=== PATIENT | female | born 1955 | race Caucasian/White ===

== ENCOUNTER 2023-04-22 09:19 | Emergency (ER) | payer MEDICARE, OTHER ==
[~2023-04-22] VITALS: Ht 167.6 cm; Wt 98.0 kg
[~2023-04-22 09:19] MED LIST: CALCIUM600 MG PO; DAILY MULTIPLE1 EACH PO; DICLOFENAC SODI75 MG PO; ESTRACE0.5 MG PO; FISH OIL500 MG PO; GABAPENTIN300 MG PO; MECLIZINE HCL25 MG PO; OXYCODONE HCL5 MG PO; SENNA LAX8.6 MG PO; TRANSDERM-SCOP1 EA TD; VITRON-C TABLE1 EACH PO; XARELTO10 MG PO; ZESTRIL10 MG PO; ZOFRAN ODT8 MG PO
[2023-04-22 10:22] VITALS: BP 148/86
== END 2023-04-22 10:22 | disposition home or self-care (01) ==
LOC: ED 09:19
DX: S43.402A Unspecified sprain of left shoulder joint, initial encounter (principal); I10 Essential (primary) hypertension; X58.XXXA Exposure to other specified factors, initial encounter; Z88.8 Allergy status to other drugs, medicaments and biological substances; Z79.899 Other long term (current) drug therapy
CPT/HCPCS: 73030; 99283 25

== ENCOUNTER 2023-09-04 07:39 | Emergency (ER) | payer MEDICARE, OTHER ==
[~2023-09-04] VITALS: Ht 167.6 cm; Wt 95.2 kg
[2023-09-04] MEDS ORDERED: LISINOPRIL10 MG PO (07:52)
[2023-09-04] MEDS ORDERED: PENICILLIN V P500 MG PO (07:55)
[2023-09-04 08:32] VITALS: BP 164/95
== END 2023-09-04 08:34 | disposition home or self-care (01) ==
LOC: ED 07:39
DX: K04.7 Periapical abscess without sinus (principal); I10 Essential (primary) hypertension; Z88.6 Allergy status to analgesic agent; Z79.899 Other long term (current) drug therapy
CPT/HCPCS: 99282

== ENCOUNTER 2025-09-06 08:37 | Day surgery (SDC) | payer MEDICARE, OTHER ==
[~2025-09-06] VITALS: Ht 162.6 cm; Wt 96.0 kg
[~2025-09-06 08:37] MED LIST changes: +CEFAZOLIN SODIUM 2 GM in SODIUM CHLORIDE 0.9% 100 ML IV SCH; +IBLOOD GLUCOSE TEST STRIP 1 EA TEST VI PRN; +LACTATED RINGER'S 1,000 ML IV SCH; +LIDOCAINE HCL 1% 5 ML SDV INJ ONE; +LISINOPRIL10 MG PO; +PENICILLIN V P500 MG PO
[2025-09-06 08:54] VITALS: BP 138/76
--- NOTE | 2025-09-06 10:04 | NUR ---
1000- PT IS RESTING COMFORTABLY WATCHING TV. PT UPDATED ON TIMELINE FOR PROCEDURE. PT REPORTS NO NEEDS AT THIS TIME. CALL LIGHT IN REACH
[2025-09-06] MEDS ORDERED: LIDOCAINE HCL 2% 5 ML SDV ONE (12:28)
[2025-09-06] MEDS ORDERED: GLUCAGON,HUMAN RECOMBINANT 1 MG/ML VIAL ONE (12:51)
[2025-09-06] MEDS ORDERED: SODIUM CHLORIDE 0.9% 20 ML IV ONE (13:10)
--- NOTE | 2025-09-06 13:35 | NUR ---
09/06/25 Nathalia5 Marybel Jean 1324- PT PRESENTS TO PACU, LEFT LATERAL POSIITON, NON REACTIVE TO STIMULUS. BREATHING EVEN AND NON LABORED, O2 AT 6L PER MASK. LR INFUSING TO RFA IV. ABD SOFT, NON DISTENDED. PT PASSING GAS. 1327- PT WAKES TO TACTILE STIMULUS, REORIENTED TO TIME AND PLACE. FALLS BACK ASLEEP. PT KICKING LEGS, FEET UNCOVERED AND PT MORE COMFORTABLE. 1333- PT MOVED TO ROOM AIR AT THIS TIME. CONTINUE TO MONITOR. PT OPENS EYES, REPORTS SHE SLEEPS WITH HER FEET OUT OF THE COVERS. ENCOURAGED TO CONTINUE TO PASS GAS. NO COMPLAINTS. PT BACK TO RESTING.
[2025-09-06 13:47] VITALS: BP 141/86
--- NOTE | 2025-09-12 07:59 | PATH ---
[facility] [address] [place], [place] [address] Signed SPECIMEN(S): A COLON POLYP AT 22 CM SPECIMEN(S): B CECUM COLON POLYP SPECIMEN(S): C PROXIMAL ASCENDING COLON POLYP SPECIMEN(S): D SIGMOID POLYP AT 25 CM SPECIMEN SOURCE: A. COLON POLYP AT 22 CM B. CECUM COLON POLYP C. PROXIMAL ASCENDING COLON POLYP D. SIGMOID POLYP AT 25 CM CLINICAL HISTORY: 10-year colon Screening FINAL PATHOLOGIC DIAGNOSIS: A. Colon polyp at 22 cm: - Tubular adenoma. - Negative for high-grade dysplasia or malignancy. B. Cecal colon polyp: - Tubular adenoma. - Negative for high-grade dysplasia or malignancy. C. Proximal ascending colon polyp: - Tubular adenoma. - Negative for high-grade dysplasia or malignancy. D. Sigmoid colon polyp at 25 cm: - Tubular adenoma. - Negative for high-grade dysplasia or malignancy. [facility] MICROSCOPIC EXAMINATION: Histologic sections of all submitted blocks are examined by light microscopy. These findings, together with the gross examination, support the pathologic diagnosis. GROSS DESCRIPTION: A. The specimen, labeled and designated "Ashlynter, colon polyp at 22 cm," is received in formalin and consists of four yu soft tissue fragments, ranging from 0.1-0.3 cm. Entirely submitted in (A1). B. The specimen, labeled and designated "Ashley, cecum colon polyp," is received in formalin and consists of two yu soft tissue fragments, ranging from 0.1-0.2 cm. Entirely submitted in (B1). PATIENT NAME: KRISH NEWBERRY PATHOLOGY DATE OF : 51 REPORT #: [id number] PHYSICIAN: JANAY ZHOU PCP: JASON GONZALEZ PA-C REPORT IS CONFIDENTIAL AND NOT TO BE RELEASED WITHOUT AUTHORIZATION [facility] [address] [place], [place] [address] Signed C. The specimen, labeled and designated "Ashley, proximal ascending colon polyp," is received in formalin and consists of two yu soft tissue fragments, ranging from 0.1-0.3 cm. Entirely submitted in (C1). D. The specimen, labeled and designated "Ashley, sigmoid polyp at 25 cm," is received in formalin and consists of two yu soft tissue fragments, ranging from 0.2-0.3 cm. Entirely submitted in (D1). VB (under the direct supervision of a pathologist) The Gross Description was prepared using a voice recognition system. The report was reviewed for accuracy; however, sound-alike word errors, addition and/or deletions may occur. If there is any question about this report, please contact Client Services. ADDITIONAL NOTES: Immunohistochemical and/or in situ hybridization studies if performed in this case included appropriate positive controls that reacted as expected. This test was developed and its performance characteristics determined by [facility]. It has not been cleared or approved by the U.S. Food and Drug Administration. The FDA has determined that such clearance or approval is not necessary. This test is used for clinical purposes. It should not be regarded as investigational or for research. [facility] is certified under the Clinical Laboratory Improvement Amendments of 1988 (CLIA) as qualified to perform high complexity clinical laboratory testing. PERFORMING LABORATORY: Technical component was performed by [facility], [address] [place] [id number] (CLIA# [id number]). Professional interpretation was performed by [facility], [address] [place] [address] (CLIA#: [id number]). Diagnostician: Gerry Alicea MD Pathologist Electronically Signed 09/10/2025 Copies: PATIENT NAME: KRISH NEWBERRY PATHOLOGY DATE OF : 51 REPORT #: [id number] PHYSICIAN: JANAY ZHOU PCP: JASON GONZALEZ PA-C REPORT IS CONFIDENTIAL AND NOT TO BE RELEASED WITHOUT AUTHORIZATION [address] [address] Signed ~ PATIENT NAME: KRISH NEWBERRY PATHOLOGY DATE OF : 51 REPORT #: [id number] PHYSICIAN: JANAY PATHOLOGY PCP: BROWN,JASON PA-C REPORT IS CONFIDENTIAL AND NOT TO BE RELEASED WITHOUT AUTHORIZATION
== END 2025-09-06 13:57 | disposition home or self-care (01) ==
LOC: OPS 08:37 → DS 08:37 → OPS 10:00 → DS 12:30 → OPS 13:57
PROVIDERS: ATTEND Surgery
PROC: 0DBN8ZX Excision of Sigmoid Colon, Via Natural or Artificial Opening Endoscopic, Diagnostic (ICD-10-PCS; 2025-09-06)
PROC: 0DBH8ZX Excision of Cecum, Via Natural or Artificial Opening Endoscopic, Diagnostic (ICD-10-PCS; 2025-09-06)
PROC: 0DBK8ZX Excision of Ascending Colon, Via Natural or Artificial Opening Endoscopic, Diagnostic (ICD-10-PCS; principal; 2025-09-06 10:00)
DX: Z12.11 Encounter for screening for malignant neoplasm of colon (principal); D12.0 Benign neoplasm of cecum; D12.2 Benign neoplasm of ascending colon; D12.5 Benign neoplasm of sigmoid colon; Z88.8 Allergy status to other drugs, medicaments and biological substances
CPT/HCPCS: 00811; 88305; J0688; J1610; J2003; J2704; J7121